=== PATIENT | female | born 1935 | race Hispanic/Latino ===

== ENCOUNTER 2017-06-06 17:52 | Emergency (ER) | payer MEDICARE ==
[2017-06-06 18:40] LABS: #Basophils 0.1 thou/uL (0.0-0.2); #Eosinphils 0.2 thou/uL (0.0-0.7); #Lymphocytes 3.2 thou/uL (1.20-3.40); #Monocytes 0.5 thou/uL (0.11-0.59); #Neutrophils 3.3 thou/uL (1.40-6.50); %Basophils 0.8 % (0.0-1.0); %Eosinophils 3.1 % (0.0-10.0); %Lymphocytes 43.4 % (21.0-51.0); %Monocytes 7.2 % (0.0-10.0); %Neutrophils 45.5 % (42.0-75.0); Hemoglobin 12.2 g/dL (12.0-16.0); Mean Corpuscular HGB CONC 34.1 g/dL (32.0-36.0); Mean Corpuscular Volume 99.7 fl (81.0-99.0); Mean Platelet Volume 7.8 fL (7.4-10.4); Platelet Count 280 thou/uL (130-400); RBC Distribution Width 12.7 % (11.5-14.5); Red Blood Cell (RBC) Count 3.57 mill/uL (4.20-5.40); White Blood Cell (WBC) Count 7.3 thou/uL (4.8-10.8)
[2017-06-06 19:04] LABS: ALT (SGPT) 12 U/L (8-55); AST (SGOT) 18 U/L (5-34); Albumin 4.3 g/dL (3.4-4.8); Alkaline Phosphatase 58 U/L (40-150); Anion Gap 15 mmol/L (10-20); BUN (Urea Nitrogen) 19 mg/dL (9.8-20.1); Bilirubin, Total 0.3 mg/dL (0.2-1.2); Calc. Creatinine Clearance 0 mL/min (70-130); Calcium 9.7 mg/dL (7.8-10.44); Carbon Dioxide 25 mmol/L (23-31); Chloride 99 mmol/L (98-107); Estimated GFR-MDRD 56; Globulin 3.3 g/dL (2.4-3.5); Glucose 143 mg/dL (83-110); Potassium 4.6 mmol/L (3.5-5.1); Protein, Total 7.6 g/dL (6.0-8.3); Sodium 134 mmol/L (136-145)
[2017-06-06 20:38] LABS: CKMB 2.2 ng/mL (0-6.6); Troponin I Less than 0.010 ng/mL (< 0.028)
== END 2017-06-06 23:04 | disposition home or self-care (01) ==
LOC: ERS 17:52
DX: I95.1 Orthostatic hypotension (principal); E86.0 Dehydration; H65.93 Unspecified nonsuppurative otitis media, bilateral; E11.9 Type 2 diabetes mellitus without complications; E78.5 Hyperlipidemia, unspecified; I10 Essential (primary) hypertension; I25.2 Old myocardial infarction; I25.10 Atherosclerotic heart disease of native coronary artery without angina pectoris; M19.90 Unspecified osteoarthritis, unspecified site; Z79.84 Long term (current) use of oral hypoglycemic drugs; Z79.899 Other long term (current) drug therapy
CPT/HCPCS: 36415; 36416; 80053; 82553; 84443; 84484; 85025; 93005; 96360; 96361

== ENCOUNTER 2017-09-29 17:31 | Observation (INO) | payer MEDICARE ==
[~2017-09-29 17:31] MED LIST: ISOVUE-370 76%-LOCM 1 ML ONE
[2017-09-29 18:08] LABS: #Basophils 0.1 thou/uL (0.0-0.2); #Eosinphils 0.1 thou/uL (0.0-0.7); #Lymphocytes 2.3 thou/uL (1.20-3.40); #Monocytes 0.5 thou/uL (0.11-0.59); #Neutrophils 3.7 thou/uL (1.40-6.50); %Basophils 1.1 % (0.0-1.0); %Eosinophils 2.1 % (0.0-10.0); %Lymphocytes 33.9 % (21.0-51.0); %Neutrophils 55.9 % (42.0-75.0); Hemoglobin 11.6 g/dL (12.0-16.0); Mean Corpuscular HGB CONC 34.5 g/dL (32.0-36.0); Mean Corpuscular Hemoglobin 34.8 pg (27.0-31.0); Platelet Count 227 thou/uL (130-400); RBC Distribution Width 12.3 % (11.5-14.5); Red Blood Cell (RBC) Count 3.34 mill/uL (4.20-5.40); White Blood Cell (WBC) Count 6.7 thou/uL (4.8-10.8)
[2017-09-29] MEDS ORDERED: Nitroglycerin 2% Ointment 1 INCH/1 GM Packet ONE (18:08)
[2017-09-29] MEDS ORDERED: diphenhydrAMINE 50 MG/ML VIAL ONE (18:08)
[2017-09-29] MEDS ORDERED: Famotidine/PF 20 mg/2ml Vial ONE (18:08)
[2017-09-29] MEDS ORDERED: methylPREDNISolone Sod Succ/PF 125 MG/2 ML VIAL ONE (18:08)
[2017-09-29 18:33] LABS: ALT (SGPT) 10 U/L (8-55); AST (SGOT) 15 U/L (5-34); Albumin 4.3 g/dL (3.4-4.8); Alkaline Phosphatase 57 U/L (40-150); Anion Gap 14 mmol/L (10-20); BUN (Urea Nitrogen) 16 mg/dL (9.8-20.1); Bilirubin, Total 0.3 mg/dL (0.2-1.2); CK (CPK) 107 U/L (29-168); Calc. Creatinine Clearance 0 mL/min (70-130); Calcium 9.7 mg/dL (7.8-10.44); Carbon Dioxide 27 mmol/L (23-31); Chloride 99 mmol/L (98-107); Estimated GFR-MDRD 63; Globulin 3.1 g/dL (2.4-3.5); Glucose 141 mg/dL (83-110); Lipase 25 U/L (8-78); Magnesium 1.8 mg/dL (1.6-2.6); Potassium 4.6 mmol/L (3.5-5.1); Protein, Total 7.4 g/dL (6.0-8.3); Sodium 135 mmol/L (136-145)
[2017-09-29 18:36] LABS: CKMB 2.4 ng/mL (0-6.6); Troponin I Less than 0.010 ng/mL (< 0.028)
--- NOTE | 2017-09-29 19:13 | RAD ---
CHEST ONE VIEW: History: Chest pain, back pain. Comparison: 03-06-16 FINDINGS: Cardiac silhouette is magnified by projection. Pulmonary vasculature is unremarkable. Mediastinum is midline. No lobar consolidation or evidence of pneumothorax. IMPRESSION: No active cardiopulmonary abnormalities are demonstrated. POS: [facility]
[2017-09-29 19:44] LABS: Bilirubin Negative (Negative); Blood, Urine Negative (Negative); Clarity CLEAR (Clear); Glucose, Urine (Dipstick) Negative (Negative); Leukocyte Trace (Negative); Nitrite Negative (Negative); Protein, Urine (Dipstick) Negative (Neg-Trace); Specific Gravity, Urine 1.003 (1.002-1.036); Urobilinogen 0.2 mg/dL (0.2-1.0); pH, Urine 7.5 (5.0-9.0)
[2017-09-29 19:45] LABS: Bacteria/HPF None Seen HPF (None Seen); Hyaline Casts/LPF 0-3 HYALINE CAST LPF (0-3 Hyaline); Pathc Cast-AUWi Flag 0.29 (0-2.49); RBC/HPF None Seen HPF (0-3); Squamous Epithelial None Seen HPF (0-3); WBC/HPF 0-3 HPF (0-3)
--- NOTE | 2017-09-29 20:01 | CT ---
CT ARTERIOGRAM CHEST WITH IV CONTRAST AND 3D MIP IMAGING CT ARTERIOGRAM ABDOMEN WITH IV CONTRAST AND 3D MIP IMAGING: History: Chest and abdomen pain with radiation to the back. FINDINGS: There is good contrast opacification of the pulmonary arteries and the aorta without evidence of diss ection or aneurysm. Calcifications apparent throughout the arterial structures. Mild scarring at the anterior lung bases. Gallbladder is surgically absent. Visceral artery to the abdomen are patent. Prominent degenerative changes of the thoracolumbar spine. IMPRESSION: 1. No CT evidence of aortic dissection. 2. Atherosclerosis. 3. Status post cholecystectomy. POS: [facility]
[2017-09-29] MEDS ORDERED: Aspirin 81 mg Enteric Coated Tablet ONE ×2 (21:26→21:27)
[2017-09-29 22:32] LABS: Troponin I Less than 0.010 ng/mL (< 0.028)
[2017-09-29] MEDS ORDERED: Ondansetron HCl/PF 4 MG/2 ML Vial IVP PRN (23:09)
[2017-09-29] MEDS ORDERED: Acetaminophen 325 MG TAB PO PRN (23:09)
[2017-09-30 00:14] VITALS: BMI 31.6
[2017-09-30] MEDS ORDERED: Dextrose 5% in Water 1,000 ML IV PRN (00:39)
[2017-09-30] MEDS ORDERED: Dextrose 50% Abboject 50 ML SYRINGE SLOW IVP PRN (00:39)
[2017-09-30] MEDS ORDERED: HumaLOG 300 UNITS/3 ML VIAL SC PRN (00:39)
[2017-09-30 01:08] LABS: Troponin I Less than 0.010 ng/mL (< 0.028)
[2017-09-30 05:18] LABS: #Lymphocytes 0.9 thou/uL (1.20-3.40); #Monocytes 0.1 thou/uL (0.11-0.59); #Neutrophils 6.3 thou/uL (1.40-6.50); %Basophils 0.2 % (0.0-1.0); %Eosinophils 0.1 % (0.0-10.0); %Lymphocytes 12.5 % (21.0-51.0); %Monocytes 0.8 % (0.0-10.0); %Neutrophils 86.4 % (42.0-75.0); Hemoglobin 11.9 g/dL (12.0-16.0); Mean Corpuscular HGB CONC 34.2 g/dL (32.0-36.0); Mean Corpuscular Hemoglobin 33.9 pg (27.0-31.0); Mean Corpuscular Volume 99.1 fL (78.0-98.0); Mean Platelet Volume 7.9 fL (7.4-10.4); Platelet Count 239 thou/uL (130-400); RBC Distribution Width 12.4 % (11.5-14.5); Red Blood Cell (RBC) Count 3.52 mill/uL (4.20-5.40); White Blood Cell (WBC) Count 7.3 thou/uL (4.8-10.8)
[2017-09-30 05:39] LABS: Anion Gap 15 mmol/L (10-20); BUN (Urea Nitrogen) 17 mg/dL (9.8-20.1); Calc. Creatinine Clearance 58 mL/min (70-130); Calcium 9.6 mg/dL (7.8-10.44); Carbon Dioxide 24 mmol/L (23-31); Chloride 99 mmol/L (98-107); Estimated GFR-MDRD 63; Glucose 254 mg/dL (83-110); Potassium 4.4 mmol/L (3.5-5.1); Sodium 134 mmol/L (136-145)
[2017-09-30] MEDS ORDERED: Loratadine 10 MG TAB PO SCH (09:00)
[2017-09-30] MEDS ORDERED: Enoxaparin Sodium 30 MG/0.3 ML SYRINGE SC SCH (09:00)
[2017-09-30] MEDS ORDERED: ADENOSINE 60 MG/20 ML VIAL ONE (09:16)
[2017-09-30] MEDS: Cyclobenzaprine 10 MG TAB PO SCH ×2 (12:17→14:25)
--- NOTE | 2017-09-30 13:51 | NM ---
NUCLEAR MEDICINE CARDIAC STRESS WITH EF AND WALL MOTION: HISTORY: Chest pain. COMPARISON: None. TECHNIQUE: The patient is administered 9.9 mCi of Technetium 99m sestamibi for rest imaging and 28.7 mCi of Tech netium 99m sestamibi for stress imaging. Cardiac gating is performed. FINDINGS: On the attenuation-corrected images, there is homogeneous distribution of the radiotracer in the left ventricle. No reversible or fixed defects. TID is 1.20. End-diastolic volume is 61 mL. End-systolic volume is 13 mL. CARDIAC GATING: Normal motion and thickening. 78% ejection fraction. IMPRESSION: 1. No reversibility or fixed defect. 2. 78% ejection fraction. POS: [facility]
[2017-09-30 16:10] VITALS: BP 166/66; TEMP 97.9
--- NOTE | 2017-09-30 17:06 | SS ---
DATE OF ADMISSION: 09/30/2017 DATE OF DISCHARGE: 09/30/2017 PRIMARY CARE PHYSICIAN: Dr. Levon Plasencia. CHIEF COMPLAINT: Chest pain. HISTORY OF PRESENT ILLNESS: Ms. Fisher is a pleasant 82-year-old female with past medical history of hypertension, dyslipidemia, diabetes, osteoarthritis who presented to the emergency room with comp laints of back pain. History is mainly obtained by the patient herself. Electronic medical records have been reviewed. The patient has an extensive cardiac workup done last year including a cardiac catheterization, stres s test, and transthoracic echocardiogram in 02/[address] Chinchilla. All of that was unremarkable. The patient reported that her valsartan was recalled and she has been tried on different medications since then and she feels that they are contributing to her back pain and high blood pressure. She edge s recently been on telmisartan and firmly believes that it is causing her back pain because she has r ead it in the side effect profile on the internet. The pain starts in the back and radiates to the l eft side over her left anterior chest. It is not associated with any shortness of breath, dizziness, lightheadedness. She does not have any recent illnesses. No fever, chills, cough or shortness of b reath. Upon presentation to the emergency room, she was hemodynamically stable and was admitted for further evaluation. PAST MEDICAL HISTORY: 1. Hypertension. 2. Dyslipidemia. 3. Osteoarthritis. 4. Anxiety. PAST SURGICAL HISTORY: Cholecystectomy, hysterectomy, and cardiac ablation x2. ALLERGIES: CODEINE, KEFLEX, PENICILLIN, PREDNISONE, SULFA. FAMILY HISTORY: Significant for myocardial infarction in father and stroke in her mother. SOCIAL HISTORY: She is and lives with her . No history of drug, tobacco or alcohol a buse. CURRENT MEDICATIONS: As follows, telmisartan 80 mg p.o. b.i.d., vitamin B12 daily, omega-3 daily, me toprolol succinate 50 mg p.o. b.i.d., metformin 1000 mg daily, glyburide 7.5 mg daily, pravastatin 80 mg daily, omeprazole 20 mg daily, metformin 500 mg at bedtime, aspirin 81 mg daily. REVIEW OF SYSTEMS: A 12-point review of systems was done. It is negative except for those mentioned in the history and physical. LABORATORY DATA: CBC shows hemoglobin 11.6, otherwise unremarkable. Serum chemistries unremarkable, blood sugar of 141. Cardiac enzymes less than 0.010 for troponin x3. Urinalysis showed trace leuko cyte esterase. CT scan with aortic dissection protocol done in the emergency room is negative for the same. Chest x -ray by my review has no acute effusion, edema or infiltrate. A 12-lead EKG by my review shows no ac [place] ST or T-wave changes. His normal sinus rhythm. PHYSICAL EXAMINATION: VITAL SIGNS: Upon presentation, blood pressure 218/75, pulse of 87, respirations 17, saturating 97% on room air. GENERAL: No acute distress, awake, alert, oriented x3. HEENT: Mucous membrane is moist and pink. No oropharyngeal exudate or erythema. Head is normocepha lic, atraumatic. Pupils equal, reactive to light and accommodation. Extraocular movement intact. NECK: Supple without any lymphadenopathy, JVD or bruit. LUNGS: Clear to auscultation without any wheezing, rales or rhonchi. HEART: Regular without any murmur, rubs or gallops. ABDOMEN: Soft, nontender, nondistended, positive bowel sounds. EXTREMITIES: Free of any cyanosis, clubbing, or edema. NEUROLOGIC: Nonfocal. SKIN: Free of any rashes or bruises. I feel warm and dry. PSYCHIATRIC: Anxiety, noticed. IMPRESSION: Chest pain. The patient has had undergone a nuclear medicine stress test as ordered by the night admitting physician. It is negative for any acute reversible ischemia. Her 1.2, but with normal cardiac catheterization, last year it is insignificant. At this time, most of her sympt oms are due to uncontrolled hypertension. I have encouraged her to restart her telmisartan and discu ss this further with Dr. Levon Plasencia. She is to keep a blood pressure log and I am prescribing h er clonidine as needed basis to take for systolic blood pressure more than 160. She is a largely vinny ssured and currently symptom free, so will be discharged. Uncontrolled hypertension. Her blood pressure has much improved and she will resume her home medicat ions as instructed with p.r.n. clonidine. DISPOSITION: The patient is being discharged with close followup with primary care physician. DISCHARGE DIAGNOSES: 1. Chest pain, atypical 2. Hypertensive urgency, resolved.
[2017-09-30] MEDS ORDERED: Atorvastatin Calcium 20 MG TAB PO SCH (21:00)
--- NOTE | 2017-10-05 13:56 | EKG ---
Test Reason : Blood Pressure : / mmHG Vent. Rate : 084 BPM Atrial Rate : 084 BPM P-R Int : 170 ms QRS Dur : 088 ms QT Int : 358 ms P-R-T Axes : 023 -32 082 degrees QTc Int : 423 ms Poor data quality, interpretation may be adversely affected Normal sinus rhythm Left axis deviation Inferior infarct , age undetermined Anterior infarct , age undetermined Abnormal ECG Similar to 06-JUN-17 Confirmed by BILL QUINTERO ([id number]), video tape editor YANIRA KAY ([id number]) on 10/05/2017 1:56:04 PM Referred By: Confirmed By:BILL QUINTERO
== END 2017-09-30 18:27 | disposition home or self-care (01) ==
LOC: ERS 17:31 → 2SW 22:57
PROVIDERS: ADMIT Hospitalist; ATTEND Hospitalist
DX: R07.89 Other chest pain (principal); I10 Essential (primary) hypertension; I16.0 Hypertensive urgency; E78.5 Hyperlipidemia, unspecified; E11.9 Type 2 diabetes mellitus without complications; M19.90 Unspecified osteoarthritis, unspecified site; F41.9 Anxiety disorder, unspecified; Z79.84 Long term (current) use of oral hypoglycemic drugs; Z79.82 Long term (current) use of aspirin; Z79.899 Other long term (current) drug therapy; Z91.041 Radiographic dye allergy status; Z88.0 Allergy status to penicillin; Z88.2 Allergy status to sulfonamides; Z88.5 Allergy status to narcotic agent; Z88.8 Allergy status to other drugs, medicaments and biological substances
CPT/HCPCS: 71045; 71275; 78452; 80048; 80053; 82550; 82553; 82962; 83690; 83735; 84484 ×3; 85025 ×2; 93005; 93017; 94760 ×3; 96374; 96375; 99285; A9500; G0378 ×2; 36415; 36416; 81003; 81015; J0153; J1200; J2930; S0028

== ENCOUNTER 2017-12-15 10:09 | Inpatient (IN) | payer MEDICARE ==
[2017-12-15 10:57] LABS: #Basophils 0.1 thou/uL (0.0-0.2); #Eosinphils 0.1 thou/uL (0.0-0.7); #Lymphocytes 1.7 thou/uL (1.20-3.40); #Monocytes 0.4 thou/uL (0.11-0.59); #Neutrophils 4.6 thou/uL (1.40-6.50); %Basophils 0.9 % (0.0-1.0); %Eosinophils 1.3 % (0.0-10.0); %Lymphocytes 24.6 % (21.0-51.0); %Monocytes 5.5 % (0.0-10.0); %Neutrophils 67.8 % (42.0-75.0); Hemoglobin 11.8 g/dL (12.0-16.0); Mean Corpuscular HGB CONC 32.9 g/dL (32.0-36.0); Mean Corpuscular Hemoglobin 32.9 pg (27.0-31.0); Mean Platelet Volume 7.6 fL (7.4-10.4); Platelet Count 244 thou/uL (130-400); RBC Distribution Width 12.4 % (11.5-14.5); Red Blood Cell (RBC) Count 3.57 mill/uL (4.20-5.40); White Blood Cell (WBC) Count 6.8 thou/uL (4.8-10.8)
[2017-12-15] MEDS ORDERED: Lorazepam 2 MG/ML VIAL ONE (11:20)
[2017-12-15] MEDS ORDERED: Nitroglycerin 2% Ointment 1 INCH/1 GM Packet ONE (11:20)
[2017-12-15 11:25] LABS: ALT (SGPT) 10 U/L (8-55); AST (SGOT) 18 U/L (5-34); Alkaline Phosphatase 53 U/L (40-150); Anion Gap 16 mmol/L (10-20); BUN (Urea Nitrogen) 12 mg/dL (9.8-20.1); Bilirubin, Total 0.4 mg/dL (0.2-1.2); Calc. Creatinine Clearance 0 mL/min (70-130); Calcium 9.1 mg/dL (7.8-10.44); Carbon Dioxide 20 mmol/L (23-31); Chloride 93 mmol/L (98-107); Estimated GFR-MDRD 77; Globulin 3.1 g/dL (2.4-3.5); Glucose 170 mg/dL (83-110); Lipase 28 U/L (8-78); Potassium 4.2 mmol/L (3.5-5.1); Protein, Total 7.1 g/dL (6.0-8.3); Sodium 125 mmol/L (136-145)
[2017-12-15 12:34] LABS: CKMB 2.2 ng/mL (0-6.6); Troponin I Less than 0.010 ng/mL (< 0.028)
[2017-12-15 12:45] LABS: Bilirubin Negative (Negative); Blood, Urine Negative (Negative); Clarity CLEAR (Clear); Glucose, Urine (Dipstick) Negative (Negative); Leukocyte Negative (Negative); Nitrite Negative (Negative); Protein, Urine (Dipstick) Negative (Neg-Trace); Specific Gravity, Urine 1.003 (1.002-1.036); Urobilinogen 0.2 mg/dL (0.2-1.0)
[2017-12-15] MEDS ORDERED: Dextrose 50% Abboject 50 ML SYRINGE SLOW IVP PRN (13:17)
[2017-12-15] MEDS ORDERED: Dextrose 5% in Water 1,000 ML IV PRN (13:17)
[2017-12-15] MEDS ORDERED: Acetaminophen 325 MG TAB PO PRN (13:17)
[2017-12-15] MEDS ORDERED: HumaLOG 300 UNITS/3 ML VIAL SC PRN ×2 (13:17)
[2017-12-15] MEDS ORDERED: Guaifenesin DM 100-10/5 ML UDCUP PO PRN (13:17)
[2017-12-15] MEDS ORDERED: Sodium Chloride 0.9% 1,000 ML IV SCH (14:15)
[2017-12-15] MEDS: Sodium Chloride 0.9% 1,000 ML IV SCH ×2 (14:55→23:25)
[2017-12-15] MEDS: metroNIDAZOLE 500 MG in Premix Bag 1 BAG IVPB SCH ×2 (14:55→23:25)
[2017-12-15] MEDS: metFORMIN 500 MG TAB PO SCH (16:31)
[2017-12-15] MEDS ORDERED: Nitroglycerin 2% Ointment 1 INCH/1 GM Packet TOP SCH (18:00)
--- NOTE | 2017-12-15 18:00 | HP ---
DATE OF ADMISSION: 12/15/2017 REASON FOR ADMISSION: Acute gastroenteritis, severe dehydration, hyponatremia. HISTORY OF PRESENT ILLNESS: The patient gives history of having watery diarrhea from yesterday josefa lucero. She had nearly 10-12 times watery mucoid diarrhea. No blood in it. The patient also felt like her throat was tightening up last night and felt it is her dehydration with electrolyte issue. She a lso felt her tongue to be numb last night. This morning again, the patient continued to have diarrhe a and finally the family brought her here. She has been able to drink water and also tried to eat so me boiled eggs this morning. She developed some shaking chills that is when the family decided to br ing her to the emergency room. No complaints of urinary frequency or urgency. No cough or expectora tion. No fever. Does not have any chest pain, palpitations or PND. The patient had systolic blood pressures of 200 on arrival, likely due to anxiety. She was given nitro paste and the pressure has c ome down to 140 systolic at present. PAST MEDICAL AND SURGICAL HISTORY: History of diabetes mellitus type 2, hypertension, dyslipidemia, stress test done on 09/30/2017 showed no reversible or fixed defect, ejection fraction was 78%, osteo arthritis, anxiety disorder, cholecystectomy, hysterectomy, prior ablation x2, has had coronary angio gram done in 02/[address] Denver Chinchilla, which showed normal coronary anatomy. CURRENT MEDICATIONS: The patient is on telmisartan 160 mg p.o. daily, pravastatin 80 mg p.o. at bedt rizwana, glyburide 7.5 mg p.o. daily, metformin 1000 mg p.o. daily and 500 mg p.o. at bedtime, omeprazole 20 mg daily, folic acid 0.4 mg p.o. daily. ALLERGIES: Allergic to CODEINE, IODINE, KEFLEX, PENICILLIN, PREDNISONE and SULFA. PERSONAL HISTORY: Does not abuse alcohol or drugs. No history of smoking. FAMILY HISTORY: Mother at the age of 83 years. Father at the age of 75 years and has had history of [place]. CODE STATUS: Full. Power of trade mark attorney is her . REVIEW OF SYSTEMS: The following complete review of systems was negative, unless otherwise mentioned in the HPI or below: Constitutional: Weight loss or gain, ability to conduct usual activities. Sk in: Rash, itching. Eyes: Double vision, pain. ENT/Mouth: Nose bleeding, neck stiffness, pain, te nderness. Cardiovascular: Palpitations, dyspnea on exertion, orthopnea. Respiratory: Shortness of breath, wheezing, cough, hemoptysis, fever or night sweats. Gastrointestinal: Poor appetite, abdom inal pain, heartburn, nausea, vomiting, constipation, or diarrhea. Genitourinary: Urgency, frequenc y, dysuria, nocturia. Musculoskeletal: Pain, swelling. Neurologic/Psychiatric: Anxiety, depressio n. Allergy/Immunologic: Skin rash, bleeding tendency. PHYSICAL EXAMINATION: GENERAL: The patient is an 82-year-old female who is currently not in any acute distress. VITAL SIGNS: Blood pressure 140/84, pulse 90 per minute, respiratory rate 18 per minute, temperature 98.3 degrees Fahrenheit, saturating 98% on room air. NECK: Supple. No elevated JVD. HEENT: Eyes, extraocular muscles intact. Pupils reacting to light. Oral cavity, mucous membranes a re dry. No exudates or congestion. CARDIOVASCULAR: S1, S2 heard. Regular rhythm. RESPIRATORY: Air entry 1+ bilaterally. No rales or rhonchi. ABDOMEN: Soft. Bowel sounds heard. No tenderness, rigidity or guarding. EXTREMITIES: No peripheral edema or calf tenderness. VASCULAR SYSTEM: Peripheral pulses 1+ bilateral. No ischemic ulcerations or gangrene. CENTRAL NERVOUS SYSTEM: No gross focal deficits noted. The patient is alert, awake, oriented well. PSYCHIATRIC: The patient's mood is euthymic. No hallucinations or delusions. LABORATORY AND X-RAY FINDINGS: White count of 6.8, H and H 11 and 35, platelet count 244,000, MCV is 100 with 67% neutrophils. Sodium 125, serum bicarbonate 20, BUN 12, creatinine 0.7, serum glucose 1 70. Liver enzymes are within normal limits. Albumin is 4.0. BNP is 92, troponin I less than 0.01, CK-MB 2.2, lipase is 28. UA is negative for any infection. EKG showed sinus rhythm at 79 beats per minute with nonspecific ST-T wave changes. CLINICAL IMPRESSION AND PLAN: The patient will be admitted to telemetry for initial hypertensive urg ency when she came, likely due to anxiety. Her systolic blood pressures are stabilized to 140s at pr esent. The patient has acute gastroenteritis, likely viral. We will obtain stool cultures and C. di ff. No recent use of antibiotics. She will be gently hydrated with normal saline at 100 mL per hour . The patient has hyponatremia with [id number] dehydration. We will continue her aspirin, L ipitor, metformin at 500 mg twice daily and telmisartan 80 mg twice daily. We will continue to close ly monitor her for any hemodynamic compromise. Please note, the patient has had a normal coronary an giogram done in 02/2016 and has had a recent stress test done in 09/2017, which were all within latricia l limits.
[2017-12-15] MEDS: Atorvastatin Calcium 20 MG TAB PO SCH (20:35)
[2017-12-15] MEDS: Famotidine 20 MG TAB PO SCH (20:35)
[2017-12-16] MEDS ORDERED: Labetalol HCl 100 MG/20 ML VIAL SLOW IVP PRN (05:02)
[2017-12-16 05:05] LABS: #Eosinphils 0.1 thou/uL (0.0-0.7); #Lymphocytes 1.4 thou/uL (1.20-3.40); #Monocytes 0.5 thou/uL (0.11-0.59); #Neutrophils 3.8 thou/uL (1.40-6.50); %Basophils 0.4 % (0.0-1.0); %Lymphocytes 24.2 % (21.0-51.0); %Monocytes 8.2 % (0.0-10.0); %Neutrophils 65.1 % (42.0-75.0); Hemoglobin 10.8 g/dL (12.0-16.0); Mean Corpuscular HGB CONC 32.1 g/dL (32.0-36.0); Mean Corpuscular Hemoglobin 32.2 pg (27.0-31.0); Mean Platelet Volume 8.2 fL (7.4-10.4); Platelet Count 237 thou/uL (130-400); RBC Distribution Width 12.3 % (11.5-14.5); Red Blood Cell (RBC) Count 3.37 mill/uL (4.20-5.40); White Blood Cell (WBC) Count 5.8 thou/uL (4.8-10.8)
[2017-12-16 05:15] LABS: Anion Gap 12 mmol/L (10-20); BUN (Urea Nitrogen) 9 mg/dL (9.8-20.1); Calc. Creatinine Clearance 63 mL/min (70-130); Calcium 8.8 mg/dL (7.8-10.44); Carbon Dioxide 24 mmol/L (23-31); Chloride 102 mmol/L (98-107); Estimated GFR-MDRD 75; Glucose 178 mg/dL (83-110); Potassium 4.1 mmol/L (3.5-5.1); Sodium 134 mmol/L (136-145)
[2017-12-16] MEDS: metFORMIN 500 MG TAB PO SCH ×2 (09:09→17:00)
[2017-12-16] MEDS: metroNIDAZOLE 500 MG in Premix Bag 1 BAG IVPB SCH ×2 (09:10→18:29)
[2017-12-16] MEDS: Enoxaparin Sodium 40 MG/0.4 ML SYRINGE SC SCH (09:10)
[2017-12-16] MEDS: Famotidine 20 MG TAB PO SCH ×2 (09:11→22:06)
--- NOTE | 2017-12-16 11:43 | PDOC.PN ---
- Subjective Encounter Start Date: 12/16/17 Encounter Start Time: 10:15 Subjective: diarrhea freq has come down, no nausea but has loss of appetite -: no abd pain or chest pain or sob - Objective Resuscitation Status: Resuscitation Status FULL:Full Resuscitation MAR Reviewed: Yes Vital Signs & Weight: Vital Signs (12 hours) Temp Pulse Resp BP BP Pulse Ox 12/16/17 08:00 94 L 12/16/17 07:17 98.4 F 79 16 139/66 94 L 12/16/17 05:26 87 190/77 H 12/16/17 04:00 97.9 F 87 20 190/77 H 96 Weight Weight 152 lb 6.4 oz I&O: 12/15/17 12/16/17 12/17/17 06:59 06:59 06:59 Intake Total 1642 Output Total 2400 Balance -758 Result Diagrams: 12/16/17 04:22 12/16/17 04:22 Additional Labs: Accuchecks 12/16/17 12/16/17 12/16/17 10:51 05:51 00:44 POC Glucose 161 H 202 H 89 12/15/17 12/15/17 20:38 16:37 POC Glucose 107 65 L Phys Exam - Physical Examination HEENT: PERRLA, moist MMs Neck: no JVD, supple Respiratory: no wheezing, no rales Cardiovascular: RRR, no significant murmur Gastrointestinal: soft, non-tender, positive bowel sounds Musculoskeletal: no edema, pulses present Neurological: non-focal, moves all 4 limbs Psychiatric: normal affect, A&O x 3 Dx/Plan (1) Gastroenteritis Code(s): K52.9 - NONINFECTIVE GASTROENTERITIS AND COLITIS, UNSPECIFIED Status : Acute (2) Dehydration Code(s): E86.0 - DEHYDRATION Status: Acute (3) Hyponatremia Code(s): E87.1 - HYPO-OSMOLALITY AND HYPONATREMIA Status: Acute (4) DM type 2 (diabetes mellitus, type 2) Status: Chronic Qualifiers: Diabetes mellitus retirement insulin use: without computer terminal operator use Diabetes mellitus complication status: with unspecified complications Qualified Code(s) : E11.8 - Type 2 diabetes mellitus with unspecified complications (5) HLD (hyperlipidemia) Code(s): E78.5 - HYPERLIPIDEMIA, UNSPECIFIED Status: Chronic Qualifiers: Hyperlipidemia type: unspecified (6) HTN (hypertension) Code(s): I10 - ESSENTIAL (PRIMARY) HYPERTENSION Status: Chronic Qualifiers: Hypertension type: essential hypertension - Plan continue iv hydration for 1 more liter and stop -: encourage po intake -: stool for c.diff, campylobacter and shiga toxins are -ve -: will dc antibiotics in am -: june tx to med floor, likely viral gastroenteritis * . Review of Systems - Medications/Allergies Allergies/Adverse Reactions: Allergies Allergy/AdvReac Type Severity Reaction Status Date / Time Sulfa (Sulfonamide Allergy Intermediate Rash Verified 12/12/12 18:19 Antibiotics) cephalexin [From Keflex] Allergy Verified 03/03/16 02:15 codeine Allergy Verified 07/09/15 14:21 Iodine and Iodide Containing Allergy Verified 03/06/16 15:57 Produc Penicillins Allergy Hives Verified 12/12/12 18:19 prednisone Allergy Verified 07/08/15 10:10 Medications: Current Medications Acetaminophen (Tylenol) 650 mg PO Q4H PRN PRN Reason: Headache/Fever/Mild Pain (1-3) Aspirin (Aspirin Chewable) 81 mg PO DAILY [facility] Last Admin: 12/16/17 09:10 Dose: 81 mg Atorvastatin Calcium (Lipitor) 20 mg PO HS [facility] Last Admin: 12/15/17 20:35 Dose: 20 mg Dextrose/Water (Dextrose 50%) 25 gm SLOW IVP PRN PRN PRN Reason: Hypoglycemia Enoxaparin Sodium (Lovenox) 40 mg SC 0900 [facility] Last Admin: 12/16/17 09:10 Dose: 40 mg Famotidine (Pepcid) 20 mg PO BID [facility] Last Admin: 12/16/17 09:11 Dose: 20 mg Glucagon (Glucagon) 1 mg IM PRN PRN PRN Reason: Hypoglycemia Guaifenesin/Dextromethorphan (Robitussin Dm) 15 ml PO Q4H PRN PRN Reason: Cough Dextrose/Water (D5w) 1,000 mls @ 0 mls/hr IV .Q0M PRN PRN Reason: Hypoglycemia Sodium Chloride (Normal Saline 0.9%) 1,000 mls @ 100 mls/hr IV .Q10H [facility] Last Admin: 12/15/17 23:25 Dose: 1,000 mls Ciprofloxacin/Dextrose 400 mg/ (Device) 200 mls @ 200 mls/hr IVPB 0300,1500 [facility] Last Admin: 12/16/17 03:01 Dose: 200 mls Metronidazole 500 mg/ Device 100 mls @ 100 mls/hr IVPB 0800,1600,2359 [facility] Last Admin: 12/16/17 09:10 Dose: 100 mls Insulin Human Lispro (Humalog) 0 units SC .MODERATE SLIDING SC PRN PRN Reason: Moderate Correctional Scale Insulin Human Lispro (Humalog) 0 units SC .BEDTIME SLIDING SC PRN PRN Reason: Bedtime Correctional Scale Labetalol HCl (Normodyne) 10 mg SLOW IVP Q4H PRN PRN Reason: Systolic BP > 180 Last Admin: 12/16/17 05:26 Dose: 10 mg Metformin HCl (Glucophage) 500 mg PO BID-[facility] Last Admin: 12/16/17 09:09 Dose: 500 mg Sodium Chloride (Flush - Normal Saline) 10 ml IVF Q12HR [facility] Last Admin: 12/16/17 10:22 Dose: Not Given Sodium Chloride (Flush - Normal Saline) 10 ml IVF PRN PRN PRN Reason: Saline Flush Telmisartan (Micardis) 40 mg PO DAILY [facility] Last Admin: 12/16/17 09:11 Dose: 40 mg
[2017-12-16 12:12] VITALS: BMI 30.7
[2017-12-16] MEDS: Sodium Chloride 0.9% 1,000 ML IV SCH (19:30)
[2017-12-16] MEDS: Atorvastatin Calcium 20 MG TAB PO SCH (22:06)
[2017-12-17] MEDS: metroNIDAZOLE 500 MG in Premix Bag 1 BAG IVPB SCH (00:30)
[2017-12-17] MEDS: Sodium Chloride 0.9% 1,000 ML IV SCH (05:58)
[2017-12-17] MEDS: metFORMIN 500 MG TAB PO SCH (07:57)
[2017-12-17] MEDS: Famotidine 20 MG TAB PO SCH (07:57)
[2017-12-17] MEDS: Enoxaparin Sodium 40 MG/0.4 ML SYRINGE SC SCH (07:58)
[2017-12-17 09:00] LABS: #Eosinphils 0.1 thou/uL (0.0-0.7); #Lymphocytes 1.5 thou/uL (1.20-3.40); #Monocytes 0.4 thou/uL (0.11-0.59); #Neutrophils 2.9 thou/uL (1.40-6.50); %Basophils 0.5 % (0.0-1.0); %Lymphocytes 30.4 % (21.0-51.0); %Monocytes 7.5 % (0.0-10.0); %Neutrophils 58.5 % (42.0-75.0); Hemoglobin 11.9 g/dL (12.0-16.0); Mean Corpuscular HGB CONC 32.6 g/dL (32.0-36.0); Mean Corpuscular Hemoglobin 32.8 pg (27.0-31.0); Mean Platelet Volume 7.8 fL (7.4-10.4); Platelet Count 262 thou/uL (130-400); RBC Distribution Width 12.5 % (11.5-14.5); Red Blood Cell (RBC) Count 3.63 mill/uL (4.20-5.40); White Blood Cell (WBC) Count 4.9 thou/uL (4.8-10.8)
[2017-12-17 09:19] LABS: Anion Gap 14 mmol/L (10-20); BUN (Urea Nitrogen) 6 mg/dL (9.8-20.1); Calc. Creatinine Clearance 68 mL/min (70-130); Calcium 9.2 mg/dL (7.8-10.44); Carbon Dioxide 22 mmol/L (23-31); Chloride 102 mmol/L (98-107); Estimated GFR-MDRD 79; Glucose 181 mg/dL (83-110); Sodium 134 mmol/L (136-145)
[2017-12-17] MEDS ORDERED: Mag-Al 1200 mg/1200 mg/30 ML UDCUP PO SCH (11:15)
[2017-12-17 11:29] VITALS: BP 183/75; TEMP 98.4
--- NOTE | 2017-12-17 11:48 | PDOC.PN ---
- Subjective Encounter Start Date: 12/17/17 Encounter Start Time: 07:50 Subjective: feels better -: no further diarrhea or nausea -: has metallic/salty taste to her tongue - Objective Resuscitation Status: Resuscitation Status FULL:Full Resuscitation MAR Reviewed: Yes Vital Signs & Weight: Vital Signs (12 hours) Temp Pulse Resp BP BP Pulse Ox 12/17/17 11:28 98.4 F 90 19 183/75 H 99 12/17/17 10:52 98.6 F 87 16 147/70 H 98 12/17/17 07:02 98.4 F 71 20 157/63 H 99 12/17/17 04:00 98.0 F 65 20 156/78 H 97 12/17/17 00:00 98.3 F 71 20 150/54 H 98 Weight Admit Weight 148 lb 1.6 oz Weight 152 lb 6.4 oz I&O: 12/16/17 12/17/17 12/18/17 06:59 06:59 06:59 Intake Total 1642 1550 Output Total 2400 Balance -758 1550 Result Diagrams: 12/17/17 08:47 12/17/17 08:47 Additional Labs: Accuchecks 12/17/17 12/16/17 12/16/17 00:36 19:32 15:42 POC Glucose 121 H 173 H 89 Phys Exam - Physical Examination HEENT: PERRLA, moist MMs Neck: no JVD, supple Respiratory: no wheezing, no rales Cardiovascular: RRR, no significant murmur Gastrointestinal: soft, non-tender, no distention, positive bowel sounds Musculoskeletal: no edema, pulses present Neurological: non-focal, moves all 4 limbs Psychiatric: normal affect, A&O x 3 Dx/Plan (1) Gastroenteritis Code(s): K52.9 - NONINFECTIVE GASTROENTERITIS AND COLITIS, UNSPECIFIED Status : Resolved (2) Dehydration Code(s): E86.0 - DEHYDRATION Status: Resolved (3) Hyponatremia Code(s): E87.1 - HYPO-OSMOLALITY AND HYPONATREMIA Status: Resolved (4) DM type 2 (diabetes mellitus, type 2) Status: Chronic Qualifiers: Diabetes mellitus terminal system operator insulin use: without terminal system operator use Diabetes mellitus complication status: with unspecified complications Qualified Code(s) : E11.8 - Type 2 diabetes mellitus with unspecified complications (5) HLD (hyperlipidemia) Code(s): E78.5 - HYPERLIPIDEMIA, UNSPECIFIED Status: Chronic Qualifiers: Hyperlipidemia type: unspecified (6) HTN (hypertension) Code(s): I10 - ESSENTIAL (PRIMARY) HYPERTENSION Status: Chronic Qualifiers: Hypertension type: essential hypertension - Plan likely had viral gastroenteritis -: stool tests are -ve for bacterial etiology -: electrolytes are stable -: dc pt home -: d/w daughter in law over phone * .
--- NOTE | 2017-12-17 13:08 | DIS ---
DATE OF ADMISSION: 12/15/2017 DATE OF DISCHARGE: 12/17/2017 DISCHARGE DISPOSITION: To home. PRIMARY DISCHARGE DIAGNOSES: Viral gastroenteritis, resolved and hyponatremia with ixbgonwe-cq-hyysa e dehydration, resolved. SECONDARY DISCHARGE DIAGNOSES: Diabetes mellitus type 2, dyslipidemia, hypertension. PROCEDURES DONE DURING HOSPITALIZATION: The patient has had stool studies including Clostridium diff icile, Campylobacter and Shiga toxin, which were all negative. Urine culture grew mixed jonathan less t saleem 10,000. H and H 12 and 36, platelet count 262,000. Discharge sodium level is 134, BUN 6, creati nine 0.7 with serum bicarbonate of 22 on the day of discharge. Admitting sodium levels were 125 with serum bicarbonate of 20. DISCHARGE MEDICATIONS: Aspirin 81 mg p.o. daily, vitamin B12 400 mcg p.o. daily, folic acid 0.4 mg p .o. daily, glyburide 7.5 mg p.o. daily, metformin 500 mg p.o. at bedtime and 1000 mg p.o. q.a.m., met oprolol succinate 50 mg twice daily, omega-3 fatty acid 350 mg p.o. daily, omeprazole 20 mg p.o. vikas y, Pravachol 80 mg p.o. at bedtime, telmisartan 80 mg p.o. twice daily. ALLERGIES: Allergic to multiple agents including SULFA, KEFLEX, CODEINE, IODINE, PENICILLIN and PRED NISONE. DISCHARGE PLAN: The patient to follow up with primary care physician in 1 week. BRIEF COURSE DURING HOSPITALIZATION: The patient initially came to ER with complaints of severe diar jed nearly 10-12 times, which was watery. She had severe dehydration with hyponatremia. The patien t was gently hydrated during her stay here. Stool studies have been negative for bacterial etiology. She was negative for Clostridium difficile as well. She was initially placed on Cipro and Flagyl, which has been discontinued. The patient developed metallic taste in her mouth with sometimes salty sensation as well on her tongue due to Flagyl. All of her antibiotics have been discontinued. She i s tolerating oral solid diet and will be shortly discharged home. Her electrolytes have stabilized p rior to discharge. She is ambulating and eating well prior to discharge. She needs to follow up wit h her primary care physician in 1 week. The patient likely had viral gastroenteritis, which is resol cresencio. She had one stool in the last 24 hours prior to discharge. Please see a [id number] documentation on [facility] for the day of discharge.
== END 2017-12-17 11:33 | disposition home or self-care (01) | DRG 641 ==
LOC: ERS 10:09 → 2NO 12:20 → T4-B 12-16 13:45
PROVIDERS: ADMIT Internal Medicine; ATTEND Internal Medicine
DX: E86.0 Dehydration (principal); A08.4 Viral intestinal infection, unspecified; E87.1 Hypo-osmolality and hyponatremia; E11.9 Type 2 diabetes mellitus without complications; I10 Essential (primary) hypertension; E78.5 Hyperlipidemia, unspecified; F41.9 Anxiety disorder, unspecified; M19.90 Unspecified osteoarthritis, unspecified site; Z79.899 Other long term (current) drug therapy; Z79.84 Long term (current) use of oral hypoglycemic drugs; Z88.5 Allergy status to narcotic agent; Z88.0 Allergy status to penicillin; Z88.8 Allergy status to other drugs, medicaments and biological substances; Z88.2 Allergy status to sulfonamides
CPT/HCPCS: 36415; 36416; 80048; 80053; 81003; 82553; 83690; 83880; 84484; 85025; 87045; 87046; 87086; 87324; 87449; 87899; 93005; 96361; 96374; J0744; J1650; J2060

== ENCOUNTER 2020-07-30 13:32 | Inpatient (IN) | payer OTHER, MEDICARE ==
[2020-07-30 16:22] LABS: #Eosinphils 0.1 thou/uL (0.0-0.7); #Lymphocytes 1.6 thou/uL (1.20-3.40); #Monocytes 0.8 thou/uL (0.11-0.59); #Neutrophils 10.7 thou/uL (1.40-6.50); %Basophils 0.1 % (0.0-1.0); %Eosinophils 0.6 % (0.0-10.0); %Lymphocytes 12.3 % (21.0-51.0); %Monocytes 6.1 % (0.0-10.0); %Neutrophils 80.9 % (42.0-75.0); Hemoglobin 11.3 g/dL (12.0-16.0); Mean Corpuscular HGB CONC 34.3 g/dL (32.0-36.0); Mean Platelet Volume 8.5 fL (7.4-10.4); Platelet Count 180 thou/uL (130-400); RBC Distribution Width 12.1 % (11.5-14.5); Red Blood Cell (RBC) Count 3.22 mill/uL (4.20-5.40); White Blood Cell (WBC) Count 13.2 thou/uL (4.8-10.8)
[2020-07-30 16:39] LABS: ALT (SGPT) 12 U/L (8-55); AST (SGOT) 20 U/L (5-34); Albumin 3.7 g/dL (3.4-4.8); Alkaline Phosphatase 52 U/L (40-110); Anion Gap 13 mmol/L (10-20); BUN (Urea Nitrogen) 17 mg/dL (9.8-20.1); Bilirubin, Total 0.4 mg/dL (0.2-1.2); Calc. Creatinine Clearance 0 mL/min (70-130); Calcium 8.8 mg/dL (7.8-10.44); Carbon Dioxide 24 mmol/L (23-31); Chloride 99 mmol/L (98-107); Glucose 109 mg/dL (83-110); Potassium 4.2 mmol/L (3.5-5.1); Protein, Total 6.7 g/dL (5.8-8.1); Sodium 132 mmol/L (136-145)
[2020-07-30 16:43] LABS: Troponin I 0.011 ng/mL (< 0.028)
[2020-07-30] MEDS ORDERED: Fentanyl 100 MCG/2 ML VIAL ONE (18:06)
[2020-07-30] MEDS ORDERED: hydrALAZINE 20 MG/ML VIAL SLOW IVP PRN (19:33)
[2020-07-30] MEDS ORDERED: Morphine 2 MG/ML VIAL SLOW IVP PRN (19:33)
[2020-07-30] MEDS ORDERED: Dextrose 5% in Water 1,000 ML IV PRN ×2 (19:33→21:47)
[2020-07-30] MEDS ORDERED: Ondansetron PF 4 MG/2 ML Vial IVP PRN (19:33)
[2020-07-30] MEDS ORDERED: Dextrose 50% Abboject 50 ML SYRINGE SLOW IVP PRN ×2 (19:33→21:47)
[2020-07-30] MEDS ORDERED: Cyclobenzaprine 10 MG TAB PO PRN (19:40)
[2020-07-30] MEDS ORDERED: traMADol HCl 50 MG TAB PO PRN (19:40)
[2020-07-30] MEDS ORDERED: Losartan 25 MG TAB PO SCH (22:00)
[2020-07-30] MEDS: Famotidine 20 MG TAB PO SCH (23:15)
[2020-07-30] MEDS: Senokot 8.6 MG TAB PO SCH (23:15)
[2020-07-30] MEDS: Atorvastatin Calcium 20 MG TAB PO SCH (23:15)
[2020-07-30] MEDS: Famotidine/PF 20 mg/2ml Vial SLOW IVP SCH (23:16)
[2020-07-30] MEDS: Acetaminophen 500 MG TAB PO PRN (23:16)
[2020-07-30] MEDS: Gabapentin 100 MG CAP PO SCH (23:16)
[2020-07-30] MEDS: Polyethylene Glycol OPTH DROP 15 ML BOT EA EYE SCH (23:17)
[2020-07-31 02:19] VITALS: BMI 32.9
[2020-07-31 05:33] LABS: #Basophils 0.1 thou/uL (0.0-0.2); #Eosinphils 0.1 thou/uL (0.0-0.7); #Lymphocytes 1.8 thou/uL (1.20-3.40); #Monocytes 0.6 thou/uL (0.11-0.59); %Basophils 1.6 % (0.0-1.0); %Lymphocytes 27.8 % (21.0-51.0); %Monocytes 8.8 % (0.0-10.0); %Neutrophils 59.8 % (42.0-75.0); Hemoglobin 11.1 g/dL (12.0-16.0); Mean Corpuscular HGB CONC 32.8 g/dL (32.0-36.0); Mean Corpuscular Hemoglobin 33.8 pg (27.0-31.0); Mean Platelet Volume 8.5 fL (7.4-10.4); Platelet Count 187 thou/uL (130-400); RBC Distribution Width 12.1 % (11.5-14.5); Red Blood Cell (RBC) Count 3.27 mill/uL (4.20-5.40); White Blood Cell (WBC) Count 6.6 thou/uL (4.8-10.8)
[2020-07-31 05:56] LABS: Anion Gap 12 mmol/L (10-20); BUN (Urea Nitrogen) 13 mg/dL (9.8-20.1); Calc. Creatinine Clearance 64 mL/min (70-130); Calcium 8.6 mg/dL (7.8-10.44); Carbon Dioxide 24 mmol/L (23-31); Chloride 98 mmol/L (98-107); Glucose 145 mg/dL (83-110); Potassium 4.2 mmol/L (3.5-5.1); Sodium 130 mmol/L (136-145)
[2020-07-31] MEDS ORDERED: Sodium Chloride 0.9% 1,000 ML IV SCH (07:30)
[2020-07-31 08:04] LABS: PTT 27.3 sec (22.9-36.1); Prothrombin Time 13.6 sec (12.0-14.7)
[2020-07-31] MEDS: Gabapentin 100 MG CAP PO SCH ×3 (08:53→22:06)
[2020-07-31] MEDS: Fish Oil 1,000 MG CAP PO SCH (08:55)
[2020-07-31] MEDS: Folic Acid 1 MG TAB PO SCH (08:55)
[2020-07-31] MEDS: Cyanocobalamin (Vitamin B-12) 1,000 MCG TAB PO SCH (08:57)
[2020-07-31] MEDS: Famotidine 20 MG TAB PO SCH ×2 (08:57→22:05)
[2020-07-31] MEDS: Senokot 8.6 MG TAB PO SCH ×2 (08:58→22:14)
[2020-07-31] MEDS: Famotidine/PF 20 mg/2ml Vial SLOW IVP SCH ×2 (09:01→22:14)
[2020-07-31] MEDS: Polyethylene Glycol 3350 17 GM Packet PO SCH (09:03)
[2020-07-31] MEDS: Polyethylene Glycol OPTH DROP 15 ML BOT EA EYE SCH ×2 (10:05→22:14)
[2020-07-31] MEDS: glyBURIDE 5 MG TAB PO SCH (10:06)
[2020-07-31] MEDS ORDERED: Dextrose 5% in Water 1,000 ML IV PRN (11:57)
[2020-07-31] MEDS ORDERED: Dextrose 50% Abboject 50 ML SYRINGE SLOW IVP PRN (11:57)
[2020-07-31 15:57] LABS: SARS-CoV-2 PCR by NAA Not Detected (NotDetected)
[2020-07-31] MEDS: Atorvastatin Calcium 20 MG TAB PO SCH (22:05)
[2020-07-31] MEDS: Enoxaparin Sodium 40 MG/0.4 ML SYRINGE SC SCH (22:05)
[2020-07-31] MEDS: Acetaminophen 500 MG TAB PO PRN (22:07)
[2020-07-31] MEDS: Ibuprofen 200 MG TAB PO PRN (22:12)
[2020-08-01] MEDS: Cyanocobalamin (Vitamin B-12) 1,000 MCG TAB PO SCH (08:38)
[2020-08-01] MEDS: Gabapentin 100 MG CAP PO SCH ×3 (08:39→21:31)
[2020-08-01] MEDS: Folic Acid 1 MG TAB PO SCH (08:39)
[2020-08-01] MEDS: Fish Oil 1,000 MG CAP PO SCH (08:40)
[2020-08-01] MEDS: Famotidine 20 MG TAB PO SCH (08:40)
[2020-08-01] MEDS: Polyethylene Glycol OPTH DROP 15 ML BOT EA EYE SCH ×2 (08:41→21:30)
[2020-08-01] MEDS: Famotidine/PF 20 mg/2ml Vial SLOW IVP SCH (08:41)
[2020-08-01] MEDS: Polyethylene Glycol 3350 17 GM Packet PO SCH (08:41)
[2020-08-01] MEDS: Senokot 8.6 MG TAB PO SCH ×2 (08:45→21:30)
[2020-08-01] MEDS: glyBURIDE 5 MG TAB PO SCH ×2 (08:48→12:03)
[2020-08-01] MEDS ORDERED: Losartan 25 MG TAB PO SCH (21:00)
[2020-08-01] MEDS ORDERED: TELMISARTAN 20 MG PO SCH (21:00)
[2020-08-01] MEDS ORDERED: Non-Formulary Item 1 EACH (Telmisartan [Telmisartan] 80 MG Tablet) PO SCH (21:00)
[2020-08-01] MEDS: Enoxaparin Sodium 40 MG/0.4 ML SYRINGE SC SCH (21:30)
[2020-08-01] MEDS: Atorvastatin Calcium 20 MG TAB PO SCH (21:30)
[2020-08-01] MEDS: Ibuprofen 200 MG TAB PO PRN (22:57)
[2020-08-02] MEDS: Acetaminophen 500 MG TAB PO PRN ×2 (02:30→08:52)
[2020-08-02] MEDS ORDERED: hydrALAZINE 20 MG/ML VIAL ONE (02:38)
[2020-08-02] MEDS ORDERED: Losartan 25 MG TAB PO SCH ×3 (03:00→09:00)
[2020-08-02] MEDS ORDERED: hydrALAZINE 20 MG/ML VIAL SLOW IVP SCH (03:45)
[2020-08-02] MEDS: glyBURIDE 5 MG TAB PO SCH (08:49)
[2020-08-02] MEDS: Fish Oil 1,000 MG CAP PO SCH (08:50)
[2020-08-02] MEDS: Cyanocobalamin (Vitamin B-12) 1,000 MCG TAB PO SCH (08:50)
[2020-08-02] MEDS: Folic Acid 1 MG TAB PO SCH (08:51)
[2020-08-02] MEDS: Senokot 8.6 MG TAB PO SCH ×2 (08:51→20:01)
[2020-08-02] MEDS: metFORMIN 500 MG TAB PO SCH ×4 (08:51→18:32)
[2020-08-02] MEDS: Polyethylene Glycol OPTH DROP 15 ML BOT EA EYE SCH ×2 (08:52→20:00)
[2020-08-02] MEDS: Gabapentin 100 MG CAP PO SCH ×3 (08:52→20:00)
[2020-08-02] MEDS: Losartan 25 MG TAB PO SCH ×2 (08:52→19:59)
[2020-08-02] MEDS: Polyethylene Glycol 3350 17 GM Packet PO SCH (09:03)
[2020-08-02] MEDS: Atorvastatin Calcium 20 MG TAB PO SCH (20:00)
[2020-08-02] MEDS: Enoxaparin Sodium 40 MG/0.4 ML SYRINGE SC SCH (20:00)
[2020-08-03] MEDS ORDERED: hydrALAZINE 20 MG/ML VIAL SLOW IVP PRN (05:55)
[2020-08-03] MEDS: Senokot 8.6 MG TAB PO SCH ×2 (08:45→08:51)
[2020-08-03] MEDS: Fish Oil 1,000 MG CAP PO SCH (08:45)
[2020-08-03] MEDS: Polyethylene Glycol 3350 17 GM Packet PO SCH ×2 (08:45→08:51)
[2020-08-03] MEDS: Folic Acid 1 MG TAB PO SCH (08:46)
[2020-08-03] MEDS: Cyanocobalamin (Vitamin B-12) 1,000 MCG TAB PO SCH (08:46)
[2020-08-03] MEDS: Losartan 25 MG TAB PO SCH (08:46)
[2020-08-03] MEDS: Gabapentin 100 MG CAP PO SCH (08:47)
[2020-08-03] MEDS: Polyethylene Glycol OPTH DROP 15 ML BOT EA EYE SCH (08:49)
[2020-08-03] MEDS: glyBURIDE 5 MG TAB PO SCH (09:02)
[2020-08-03 11:33] VITALS: BP 152/71; TEMP 98.2
[2020-08-03] MEDS: Ibuprofen 200 MG TAB PO PRN (13:41)
== END 2020-08-03 14:37 | DRG 536 ==
LOC: ERS 13:32 → SJJU 21:47
PROVIDERS: ADMIT Surgery; ATTEND Surgery
DX: S32.592A Other specified fracture of left pubis, initial encounter for closed fracture (principal); E11.9 Type 2 diabetes mellitus without complications; K21.9 Gastro-esophageal reflux disease without esophagitis; I10 Essential (primary) hypertension; E78.5 Hyperlipidemia, unspecified; I48.91 Unspecified atrial fibrillation; E53.9 Vitamin B deficiency, unspecified; I95.2 Hypotension due to drugs; W01.0XXA Fall on same level from slipping, tripping and stumbling without subsequent striking against object, initial encounter; I25.2 Old myocardial infarction; Z90.49 Acquired absence of other specified parts of digestive tract; Z90.710 Acquired absence of both cervix and uterus; Z79.82 Long term (current) use of aspirin; Z88.2 Allergy status to sulfonamides; Z88.0 Allergy status to penicillin; Z88.1 Allergy status to other antibiotic agents; Z88.5 Allergy status to narcotic agent; Z91.041 Radiographic dye allergy status
CPT/HCPCS: 36415; 36416; 70450; 72170; 74176; 80048; 80053; 84484; 85025; 85610; 85730; 86850; 86900; 86901; 93005; 93010; 96374; G0390; J0360; J1650; J2405; J3010; U0003; U0005